=== PATIENT | female | born 1995 | race Caucasian/White ===

== ENCOUNTER 2022-11-03 08:20 | Inpatient (IN) | payer OTHER ==
[2022-11-03 10:31] LABS: EOS % 0.8 % (0-4.5); HEMATOCRIT 35.1 % (32.4-45.2); LYMPH % 23.5 % (8-40); MCH 28.1 pg (25.7-33.7); MCHC 34.1 g/dl (32.0-36.0); MEAN CELL VOLUME 82.5 fl (80-96); MEAN PLT VOLUME 9.7 fl (7.5-11.1); MONO % 4.7 % (3.8-10.2); PLATELET COUNT 169 10^3/uL (134-434); RBC 4.26 M/mm3 (3.60-5.2); RDW 14.4 % (11.6-15.6); WHITE BLOOD COUNT 8.6 K/mm3 (4.0-10.0)
[2022-11-03 10:37] LABS: INR 0.99 (0.83-1.09); PROTHROMBIN TIME (PATIENT) 11.5 SEC (9.7-13.0)
[2022-11-03 10:39] LABS: ACTIVATED PTT 26.6 SECONDS (25.2-36.5)
[2022-11-03 10:56] LABS: POTASSIUM 3.8 mmol/L (3.5-5.1)
[2022-11-03 10:57] LABS: CALCIUM 8.6 mg/dL (8.5-10.1)
[2022-11-03 10:58] LABS: BLOOD UREA NITROGEN 6.5 mg/dL (7-18)
[2022-11-03 11:01] LABS: CREATININE 0.5 mg/dL (0.55-1.3)
[2022-11-03 11:46] LABS: SYPHILIS W/ RPR CONF NON-REACTIVE (NONREACTIVE)
[2022-11-03 11:50] VITALS: BMI 41.1
[2022-11-03 13:17] LABS: HIV INTERPRETATION NEGATIVE (NEGATIVE)
[2022-11-03] MEDS ORDERED: morphine SULFATE/PF 1 MG/2 ML (2cc Syringe - QUVA) ONE (14:37)
[2022-11-03] MEDS ORDERED: CITRIC ACID/SODIUM CITRATE 30 ML UNIT-DOSE CUP PO ONE (14:43)
[2022-11-03] MEDS ORDERED: METHYLERGONOVINE MALEATE 0.2 MG/1 ML AMP IM PRN (14:45)
[2022-11-03] MEDS ORDERED: ELECTROLYTE-148 SOLN 1,000 ML IV SCH (14:45)
[2022-11-03] MEDS ORDERED: morphine SULFATE/PF 1 MG/2 ML (2cc Syringe - QUVA) EP ONE (15:59)
[2022-11-03] MEDS: OXYTOCIN 20 UNITS in 0.9% NS 20 UNIT/1,000 ML INFUS.BAG IV SCH (18:36)
[2022-11-03] MEDS ORDERED: ONDANSETRON 4 MG/2 ML VIAL IVPUSH PRN (20:27)
[2022-11-03] MEDS: FERROUS SO4 325 MG TABLET (FP) PO SCH (21:01)
[2022-11-03] MEDS: IBUPROFEN 800 MG/8 ML IJ IVPB PRN (22:03)
[2022-11-04] MEDS ORDERED: oxyCODONE HCL 5 MG TABLET PO PRN ×2 (02:45)
[2022-11-04] MEDS: OXYTOCIN 20 UNITS in 0.9% NS 20 UNIT/1,000 ML INFUS.BAG IV SCH ×2 (03:51→19:18)
[2022-11-04 07:22] LABS: BASO % 0.5 % (0-2.0); EOS % 0.6 % (0-4.5); HEMATOCRIT 33.6 % (32.4-45.2); HEMOGLOBIN 11.9 GM/dL (10.7-15.3); LYMPH % 25.1 % (8-40); MCH 28.9 pg (25.7-33.7); MCHC 35.4 g/dl (32.0-36.0); MEAN CELL VOLUME 81.7 fl (80-96); MEAN PLT VOLUME 9.9 fl (7.5-11.1); MONO % 3.9 % (3.8-10.2); NEUT % 69.9 % (42.8-82.8); PLATELET COUNT 150 10^3/uL (134-434); RBC 4.12 M/mm3 (3.60-5.2); RDW 14.3 % (11.6-15.6); WHITE BLOOD COUNT 8.8 K/mm3 (4.0-10.0)
[2022-11-04] MEDS: IBUPROFEN 800 MG/8 ML IJ IVPB PRN (07:33)
[2022-11-04] MEDS: FERROUS SO4 325 MG TABLET (FP) PO SCH ×2 (09:37→21:35)
[2022-11-04] MEDS: PRENATAL VITAMINS W/ FOLIC ACID TABLET (FP) PO SCH (09:38)
[2022-11-04] MEDS ORDERED: BISACODYL 10 MG SUPP.RECT RC PRN (14:45)
[2022-11-04] MEDS: IBUPROFEN 600 MG TABLET (FP) PO PRN ×2 (15:09→19:26)
[2022-11-04] MEDS: SIMETHICONE 80 MG TAB.CHEW (FP) PO PRN ×2 (15:09→19:26)
[2022-11-04] MEDS: SENNOSIDES/DOCUSATE COMBO (SENNA PLUS) TABLET (UD) PO PRN (21:35)
[2022-11-05] MEDS: IBUPROFEN 600 MG TABLET (FP) PO PRN (08:30)
[2022-11-05] MEDS: SIMETHICONE 80 MG TAB.CHEW (FP) PO PRN ×2 (08:31→22:17)
[2022-11-05] MEDS: FERROUS SO4 325 MG TABLET (FP) PO SCH ×2 (10:49→22:17)
[2022-11-05] MEDS: PRENATAL VITAMINS W/ FOLIC ACID TABLET (FP) PO SCH (10:49)
[2022-11-05] MEDS: ACETAMINOPHEN 325 MG TABLET (FP) PO PRN ×4 (10:49→22:17)
[2022-11-05] MEDS: SENNOSIDES/DOCUSATE COMBO (SENNA PLUS) TABLET (UD) PO PRN (22:17)
[2022-11-06] MEDS: ACETAMINOPHEN 325 MG TABLET (FP) PO PRN (09:34)
[2022-11-06] MEDS: PRENATAL VITAMINS W/ FOLIC ACID TABLET (FP) PO SCH (09:35)
[2022-11-06] MEDS: FERROUS SO4 325 MG TABLET (FP) PO SCH (09:35)
[2022-11-06 11:57] VITALS: BP 119/79; PULSE 82; RESP 20; TEMP 98
== END 2022-11-06 12:50 | disposition home or self-care (01) | DRG 540 ==
LOC: JLDR 08:20 → J3W 17:30
PROVIDERS: ADMIT Obstetrics & Gynecology; ATTEND Obstetrics & Gynecology
PROC: 10D00Z1 Extraction of Products of Conception, Low, Open Approach (ICD-10-PCS; principal; 2022-11-03)
DX: O48.0 Post-term pregnancy (principal); O36.63X0 Maternal care for excessive fetal growth, third trimester, not applicable or unspecified; O99.214 Obesity complicating childbirth; Z37.0 Single live birth; Z3A.40 40 weeks gestation of pregnancy
CPT/HCPCS: 36415; 80048; 85025; 85610; 85730; 86780; 86850; 86900; 86901; 87389; 88307-TC; 94010; C9803-CS; U0003; U0005